=== PATIENT | male | born 1970 | race Two or more races ===

== ENCOUNTER 2018-04-12 13:13 | Emergency (ER) | payer SELFPAY ==
[~2018-04-12] VITALS: Ht 177.8 cm; Wt 90.7 kg
[2018-04-12] MEDS: IV NORMAL SALINE 1000 ML BAG IV ONE (13:31)
--- NOTE | 2018-04-12 13:32 | NUR ---
BIB [facility] FOR C/O ALCOHOL INTOXICATION. PATIENT IS AWAKE BUT NOT VERY VERBAL. WHEN ASKED IF ANYTHING HURTS, HE STATES HIS HEAD HURTS. I TOLD THIS TO DR DONALDSON... CT IS ORDERED. PLACED ON CONTINUOUS CARDIAC MONITORING.
[2018-04-12 13:39] LABS: BASOPHILS % (AUTO) 0.8 % (0.0-2.0); EOSINOPHILS # (AUTO) 0.1 K/uL (0.0-0.7); EOSINOPHILS % (AUTO) 1.7 % (0.0-7.0); HEMATOCRIT 39.1 % (36.7-47.1); HEMOGLOBIN 13.5 g/dL (12.5-16.3); LYMPHOCYTES # (AUTO) 2.5 K/uL (20.0-40.0); LYMPHOCYTES % (AUTO) 41.8 % (20.5-51.5); MEAN CORPUSCULAR HEMOGLOBIN 32.4 uug (23.8-33.4); MEAN CORPUSCULAR HGB CONC 35 g/dL (32.5-36.3); MEAN CORPUSCULAR VOLUME 93.9 fL (73.0-96.2); MONOCYTES # (AUTO) 0.5 K/uL (2.0-10.0); MONOCYTES % (AUTO) 9.1 % (0.0-11.0); NEUTROPHILS # (AUTO) 2.8 K/uL (1.8-8.9); NEUTROPHILS % (AUTO) 46.6 % (38.5-71.5); PLATELET COUNT (AUTO) 159 K/uL (152-348); RED BLOOD CELL COUNT(AUTO) 4.16 MIL/uL (4.06-5.63)
[2018-04-12 13:46] LABS: CREATININE 0.9 mg/dL (0.6-1.3); POTASSIUM 3.6 mmol/L (3.5-5.1)
[2018-04-12 13:51] LABS: ACETAMINOPHEN < 2.0 ug/mL (10-30)
[2018-04-12 13:52] LABS: BILIRUBIN,DIRECT 0.1 mg/dL (0.0-0.2); BILIRUBIN,TOTAL 0.2 mg/dL (0.2-1.0)
[2018-04-12] MEDS: ACETAMINOPHEN ES 500 MG TABLET PO ONE (14:24)
[2018-04-12] MEDS ORDERED: ACETAMINOPHEN ES 500 MG TABLET ONE (14:29)
--- NOTE | 2018-04-12 14:30 | NUR ---
PATIENT IS SITTING UP IN NO DISTRESS. HE SMELLS LIKE ALCOHOL. I GAVE HIM SOME WATER. DENIES NAUSEA OR PAIN AT THIS TIME.
--- NOTE | 2018-04-12 16:47 | NUR ---
DC AND FOLLOW UP INSTRUCTIONS GIVEN AND EXPLAINED TO PATIENT WHO STATES HE UNDERSTANDS ALL INSTRUCTIONS. PATIENTS COUSIN HERE AT BEDSIDE WHO WILL DRIVE HIM HOME.
--- NOTE | 2018-04-12 16:47 | NUR ---
IV removed. Catheter intact and site benign. Pressure and 4x4 gauze applied to site. No bleeding noted.
[2018-04-12 16:48] VITALS: BP 133/82
== END 2018-04-12 16:49 | disposition home or self-care (01) ==
LOC: ER 13:13
DX: F10.129 Alcohol abuse with intoxication, unspecified (principal); I10 Essential (primary) hypertension; R74.0 Nonspecific elevation of levels of transaminase and lactic acid dehydrogenase [LDH]; R73.9 Hyperglycemia, unspecified
CPT/HCPCS: 36415; 70450; 83690; 85025; A4663; A9150; G0480; G0480-TC; J7030